=== PATIENT | female | born 1965 | race Caucasian/White ===

== ENCOUNTER 2022-07-25 09:17 | Emergency (ER) | payer BC ==
[2022-07-25 09:29] VITALS: BP 154/88; PULSE 80; RESP 16; TEMP 98
[2022-07-25] MEDS ORDERED: MORPHINE SULFATE 4 MG/ML SYRINGE IM STA (09:45)
[2022-07-25] MEDS ORDERED: LIDOCAINE 1% INJ 10MG/ML (5 ML VIAL-PF) SQ STA (09:45)
[2022-07-25] MEDS ORDERED: LIDOCAINE 1% INJ 10MG/ML (20 ML MDV) SQ ONE (10:03)
[2022-07-25] MEDS ORDERED: DIPH,PERTUS(ACELL)TETVAC-LF 0.5 ML VIAL IM ONE (10:36)
--- NOTE | 2022-07-25 10:44 | ED ---
Wound/Laceration HPI - General Chief Complaint: Wound/Laceration Stated Complaint: Fall, face laceration Time Seen by Provider: 07/25/22 09:35 Source: patient Mode of arrival: ambulatory Limitations: no limitations - History of Present Illness Initial Comments: Patient is a pleasant 57-year-old female who tripped over a step and hit her chin on a window ledge. She reports that the window ledge was within wooden with latex like paint applied to it. She is unsure of her tetanus status. She is complaining of quite a bit of pain to the chin site. She denies any loss of consciousness, dizziness, headache not directly related to her laceration, or difficulty with jaw movement. She denies any significant past medical history and does not take any medications on a regular basis. - Related Data Allergies Allergy/AdvReac Type Severity Reaction Status Date / Time Sulfa (Sulfonamide Allergy Rash/Hives Verified 07/25/22 09:28 Antibiotics) Review of Systems ROS Statement: Those systems with pertinent positive or pertinent negative responses have been documented in the HPI. ROS Other: All systems not noted in ROS Statement are negative. Past Medical History Past Medical History: No Reported History History of Any Multi-Drug Resistant Organisms: None Reported Past Surgical History: Section, Cholecystectomy, Hernia Repair Additional Past Surgical History / Comment(s): eye surgery Smoking Status: Never smoker Past Alcohol Use History: Occasional Past Drug Use History: None Reported General Exam Limitations: no limitations General appearance: alert, in no apparent distress Head exam: Present: normocephalic, other (Laceration to chin approximately 2 cm with approximately 0.5 centimeter depth. No bone involvement or no foreign object.) Eye exam: Present: normal appearance, PERRL, EOMI. Absent: scleral icterus, conjunctival injection, periorbital swelling ENT exam: Present: normal exam, mucous membranes moist Neck exam: Present: normal inspection, full ROM Respiratory exam: Absent: respiratory distress, accessory muscle use Extremities exam: Present: normal inspection. Absent: pedal edema, joint swelling Back exam: Present: normal inspection Neurological exam: Present: alert, oriented X3, CN II-XII intact Psychiatric exam: Present: normal affect, normal mood Skin exam: Present: other (Laceration as indicated above) Course Vital Signs 07/25/22 09:24 Temperature 98 F Pulse Rate 80 Respiratory 16 Rate Blood Pressure 154/88 O2 Sat by Pulse 97 Oximetry Procedures - Laceration Laceration #1 Consent Obtained: verbal consent Indication: laceration Site: face (Chin) Size (cm): 2 Description: linear Depth: simple, single layer Anesthetic Used: lidocaine 1% Anesthesia Technique: local infiltration Pre-repair: wound explored Type of Sutures: nylon Size of Sutures: 5-0 Number of Sutures: 5 Technique: simple, interrupted Patient Tolerated Procedure: well, no complications Medical Decision Making - Medical Decision Making 57-year-old female with no significant past medical history presenting to the emergency room with laceration to the chin after trip and fall. No loss of consciousness or concern for bone involvement. No indication for diagnostic imaging.Will give morphine 4mg IM for pain and plan for suture closure of laceration after debridement. Will update Tdap. No indication for antibiotic therapy. Laceration closed without complication. Advised to follow-up with primary care provider and or ER or urgent care for suture removal. Advised to monitor wound for signs symptoms of infection and keep wound clean and dry. Case discussed with Dr. Kennedy. Disposition Clinical Impression: Laceration Disposition: HOME SELF-CARE Condition: Stable Instructions (If sedation given, give patient instructions): Care For Your Stitches (DC), Laceration (DC) Additional Instructions: Please keep wound clean and dry. Monitor for signs and symptoms of infection. Please follow-up with your primary care provider in 7-10 days for suture removal. Please return to the Emergency Department if symptoms worsen or any other concerns. Is patient prescribed a controlled substance at d/c from ED?: No Referrals: None,Stated [Primary Care Provider] - 1-2 days Time of Disposition: 10:43
== END 2022-07-25 10:58 | disposition home or self-care (01) ==
LOC: EC 09:17
DX: S01.81XA Laceration without foreign body of other part of head, initial encounter (principal); Z23 Encounter for immunization; Z88.2 Allergy status to sulfonamides; W01.0XXA Fall on same level from slipping, tripping and stumbling without subsequent striking against object, initial encounter
CPT/HCPCS: 90715; 12011; 99282; 90471; 96372; J2270; J2001